=== PATIENT | female | born 1985 | race African-American/Black ===

== ENCOUNTER 2017-01-03 11:24 | Emergency (ER) | payer OTHER ==
[~2017-01-03 11:24] MED LIST: AMOX875T PO; MAGICPED SWISH-SWAL
[2017-01-03 11:27] VITALS: BP 187/111; PULSE 77; RESP 14; TEMP 98.7; O2SAT 100
[2017-01-03 12:45] LABS: BLOOD, URINE SMALL (NEG); GLUCOSE,URINE NEG (NEG); KETONE, URINE NEG (NEG); NITRITE,URINE NEG (NEG); PH, URINE 5.5 (5.0-8.5); SQUAMOUS EPITHELIAL CELL URINE 1 /hpf (0-5); URINE COLOR YELLOW (YELLW/STRAW)
[2017-01-03 12:47] LABS: COMMENT (UR) CULT NOT INDICATED; CULTURE IF INDICATED CULT NOT INDICATED
--- NOTE | 2017-01-03 12:58 | PD ---
HPI Chief Complaint: Complaint Time Seen by Provider: 12:56 Travel History International Travel<30 days: No Contact w/Intl Traveler<30days: No Traveled to known affect area: No History of Present Illness HPI 31-year-old female presents to the emergency department complaining of left lower abdominal pain for 1-2 months. States that she did see her disability program navigator last week and she had a vaginal ultrasound and diagnosed with fibroids and cysts as a cause of her symptoms. She also had a recent episode of gonorrhea infection and received treatment for this as well. She started her new contraceptives approximately 2 weeks ago and is frustrated about having continuous pain. She is here because she wants to see another disability program navigator for a second opinion. Her symptoms have remained unchanged since her last evaluation by her disability program navigator. She denies fever, chills, chest pain, shortness of breath, nausea, vomiting, diarrhea, hematochezia. Denies vaginal discharge. PFSH Past Medical History Cancer: No Diabetes: No Diminished Hearing: No Glaucoma: No Hepatitis: No Hiatal Hernia: No Hypertension: Yes Immunizations Current: Yes Myocardial Infarction: No Thyroid Disease: No : 2 Para: 2 Tubal Ligation: Yes Past Surgical History Gynecologic Surgery: Yes ([facility] FOR CERVICAL DYSPLASIA) Pacemaker: No Other Surgery: No Social History Alcohol Use: No Tobacco Use: No Substance Use: No Allergies-Medications (Allergen,Severity, Reaction): Coded Allergies: No Known Allergies (Verified , 02/07/16) Reported Meds & Prescriptions Reported Meds & Active Scripts Active Diclofenac Sodium DR (Diclofenac Sodium) 50 Mg Tabdr 50 Mg PO TID Magic Mouthwash Pediatric/Adult Liq (Lidocaine/Diphenhydr/Alum/Mg/Simeth) 60 Ml Susp 10 Ml SWISH-SWAL ACHS Each 5 mL contains: Diphenydramine 4.5 mg,Viscous Lidocaine 2% 10 mg, Maalox Advanced Regular Strength 2.7 ml (Aluminum hydroxide 108 mg, Magnesium hydroxide 108 mg and Simethicone 10.8 mg) Amoxicillin 875 Mg Tab 875 Mg PO BID Review of Systems Except as stated in HPI: all other systems reviewed are Neg Physical Exam Narrative GENERAL: Well-nourished, well-developed patient. SKIN: Focused skin assessment warm/dry. HEAD: Normocephalic. EYES: No scleral icterus. No injection or drainage. NECK: Supple, trachea midline. No JVD or lymphadenopathy. CARDIOVASCULAR: Regular rate and rhythm without murmurs, gallops, or rubs. RESPIRATORY: Breath sounds equal bilaterally. No accessory muscle use. GASTROINTESTINAL: Abdomen soft, non-tender, nondistended. MUSCULOSKELETAL: No cyanosis, or edema. BACK: Nontender without obvious deformity. No CVA tenderness. Data Data Last Documented VS Vital Signs Date Time Temp Pulse Resp B/P (MAP) Pulse Ox O2 Delivery O2 Flow Rate FiO2 01/03/17 13:58 01/03/17 13:56 88 01/03/17 11:27 98.7 14 100 Orders Orders Urinalysis - C+S If Indicated (01/03/17 12:07) Ed Urine Pregnancytest Poc (01/03/17 12:07) Gc And Chlamydia Pcr (01/03/17 12:07) Ed Discharge Order (01/03/17 13:39) Labs Laboratory Tests Test 01/03/17 12:07 01/03/17 12:15 Chlamydia trachomatis DNA (PCR) NOT DETECTED Neisseria gonorrhoeae DNA (PCR) NOT DETECTED Urine Color YELLOW Urine Turbidity CLEAR Urine pH 5.5 Urine Specific [place] 1.021 Urine Protein NEG mg/dL Urine Glucose (UA) NEG mg/dL Urine Ketones NEG mg/dL Urine Occult Blood SMALL Urine Nitrite NEG Urine Bilirubin NEG Urine Urobilinogen LESS THAN 2.0 MG/DL Urine Leukocyte Esterase NEG Urine RBC LESS THAN 1 /hpf Urine WBC 1 /hpf Urine Squamous Epithelial Cells 1 /hpf Microscopic Urinalysis Comment CULT NOT INDICATED MDM Medical Decision Making Medical Screen Exam Complete: Yes Emergency Medical Condition: Yes Differential Diagnosis Uterine fibroids versus cyst versus peritonitis Narrative Course 31-year-old female presents to the emergency department complaining of left lower abdominal pain for 1-2 months. States the pain is located in the left pelvis area that worsens around her period. Describes the pain as achy and occasionally sharp, moderate. Ibuprofen does not provide relief. States she has excessive bleeding during her menstrual cycle. States that she did see her disability program navigator last week and she had a vaginal ultrasound and diagnosed with fibroids and cysts as a cause of her symptoms. She also had a recent episode of gonorrhea infection and received treatment for this as well. She started her new contraceptives approximately 2 weeks ago and is frustrated about having continuous pain. She is here because she wants to see another disability program navigator for a second opinion. Her symptoms have remained unchanged since her last evaluation by her disability program navigator. She denies fever, chills, chest pain, heart palpitations shortness of breath, nausea, vomiting, diarrhea, hematochezia. Denies vaginal discharge. Vitals Signs- Initially, BP was very high. Repeat BP decreased. Physical exam- mild TTP to pelvic region. Based off of H&P and after further discussion, patient revealed that she was frustrated with her current disability program navigator and wanted a second opinion from a disability program navigator for her chronic pelvic pain. I offered a couple of studies to determine the severity of her bleeding but she only wanted to see a disability program navigator. She did not have apparent signs or symptoms of anemia secondary to the menorrhagia. Her symptoms were unchanged from her last evaluation. I had an extensive discussion regarding my findings and advised her to follow up with a provider of her choice. I gave her Dr. Perez's name for potential doctors and strongly urged her to follow up with her PCP. Pt understood and agreed, although she was still frustrated. Diagnosis Primary Impression: Female pelvic pain Referrals: Public Address Announcer Additional Instructions: Take medication as prescribed. With other anti-inflammatories while using diclofenac. Return to the disability program navigator for further treatment and evaluation Scripts Diclofenac Sodium (Diclofenac Sodium ) 50 Mg Tabdr 50 MG PO TID for Pain Management, #30 TAB 0 Refills Prov: Gerber Rod MD 01/03/17 Disposition: 01 DISCHARGE HOME Condition: Stable Elsi Bonner Jan 03, 2017 12:58
[2017-01-03] MEDS ORDERED: DICL50TA3 PO (13:36)
[2017-01-03 13:56] VITALS: BP 180/90; PULSE 88
[2017-01-04 03:54] LABS: CHLAMYDIA PCR NOT DETECTED (NOT DETECT); NEISSERIA PCR NOT DETECTED (NOT DETECT)
== END 2017-01-03 14:00 | disposition home or self-care (01) ==
LOC: NEPK 11:24
DX: R10.2 Pelvic and perineal pain (principal); I10 Essential (primary) hypertension; Z79.899 Other long term (current) drug therapy
CPT/HCPCS: 81001; 84703; 87491; 87591; 99283